=== PATIENT | female | born 1965 | race Two or more races ===

== ENCOUNTER 2020-11-30 12:01 | Emergency (ER) | payer OTHER ==
[~2020-11-30] VITALS: Ht 170.2 cm; Wt 65.8 kg
== END 2020-11-30 18:42 | disposition home or self-care (01) ==
LOC: ER 12:01
DX: N83.209 Unspecified ovarian cyst, unspecified side (principal); Z03.818 Encounter for observation for suspected exposure to other biological agents ruled out

== ENCOUNTER 2020-12-19 07:32 | Emergency (ER) | payer OTHER ==
[~2020-12-19] VITALS: Ht 170.2 cm; Wt 63.5 kg
[2020-12-19] MEDS ORDERED: LEVSIN/SL0.125 MG PO (14:01)
[2020-12-19] MEDS ORDERED: KETO10TA2 PO (14:01)
[2020-12-25] MEDS ORDERED: HYOSCYAMINE0.125 M2 PO (08:55)
== END 2020-12-19 14:18 ==
LOC: ER 07:32
DX: N23 Unspecified renal colic (principal); Z03.818 Encounter for observation for suspected exposure to other biological agents ruled out

== ENCOUNTER 2020-12-31 05:47 | Day surgery (SDC) | payer OTHER ==
[~2020-12-31 05:47] MED LIST: HYOSCYAMINE0.125 M2 PO; KETO10TA2 PO; LEVSIN/SL0.125 MG PO
[2020-12-31] MEDS ORDERED: ULTRACET PO (09:32)
[2020-12-31] MEDS ORDERED: PROTONIX40 MG PO (09:39)
[2020-12-31] MEDS ORDERED: SURFAK240 M1 PO (09:40)
== END 2020-12-31 11:10 | disposition home or self-care (01) ==
LOC: CIR.AMB 05:47
PROVIDERS: ATTEND Surgery
DX: K81.1 Chronic cholecystitis (principal); K66.0 Peritoneal adhesions (postprocedural) (postinfection); Z20.822 Contact with and (suspected) exposure to COVID-19